=== PATIENT | female | born 1980 ===

== ENCOUNTER 2016-12-20 14:16 | Emergency (ER) | payer OTHER ==
[2016-12-20 14:23] VITALS: BP 113/62; PULSE 89; RESP 18; TEMP 98; O2SAT 99
--- NOTE | 2016-12-20 15:06 | ED PDOC ---
HPI: General Adult Time Seen by Provider: 12/20/16 14:47 Chief Complaint (Nursing): Breast Problem Chief Complaint (Provider): Breast pain History Per: Patient History/Exam Limitations: no limitations Onset/Duration Of Symptoms: Days Current Symptoms Are (Timing): Still Present Additional Complaint(s): Patient is a 36 y/o female with no significant past medical history presenting to the emergency department for occasional breast pain ongoing for two years. Patient states she has felt lumps to her breast and has previoulsy been seen by [facility]. Reports that she had a mammogram and ultrasound done last year. Notes feeling a lump on her left breast several days ago that is painful when palpated. She reports her last normal menstrual period was two weeks ago and pain started few days after. Also notes two normal pregnancies via vaginal delivery. Further, patient reports using an IUD since two years. : 2 Para: 2 PCP: none provided. Past Medical History Reviewed: Historical Data, Nursing Documentation, Vital Signs Vital Signs: Last Vital Signs Temp 98 F 12/20/16 14:20 Pulse 89 12/20/16 14:20 Resp 18 12/20/16 14:20 BP 113/62 12/20/16 14:20 Pulse Ox 99 12/20/16 15:59 - Medical History PMH: No Chronic Diseases - Surgical History Surgical History: No Surg Hx - Family History Family History: States: Unknown Family Hx - Living Arrangements Living Arrangements: With Family - Home Medications Home Medications: Ambulatory Orders Medication Instructions Recorded Naproxen [Naprosyn] 1 tab PO BID PRN #25 tab 12/20/16 - Allergies Allergies/Adverse Reactions: Allergies Allergy/AdvReac Type Severity Reaction Status Date / Time No Known Allergies Allergy Verified 12/20/16 14:20 Review of Systems ROS Statement: Except As Marked, All Systems Reviewed And Found Negative Constitutional: Negative for: Fever Musculoskeletal: Positive for: Other (breast pain with feeling of lump present) Physical Exam - Reviewed Nursing Documentation Reviewed: Yes Vital Signs Reviewed: Yes - Physical Exam Appears: Positive for: Well, Non-toxic, No Acute Distress Head Exam: Positive for: ATRAUMATIC, NORMAL INSPECTION, NORMOCEPHALIC Skin: Positive for: Normal Color, Warm, Dry Eye Exam: Positive for: Normal appearance Neck: Positive for: Normal Cardiovascular/Chest: Positive for: Regular Rate, Rhythm. Negative for: Murmur Respiratory: Positive for: Normal Breath Sounds. Negative for: Accessory Muscle Use, Respiratory Distress Extremity: Positive for: Normal ROM Neurologic/Psych: Positive for: Alert, Oriented (x3) Comments: Breast examination: Breasts are symmetric. No skin changes, dimpling, erythema, or discharge noted. No masses noted on right breast. On left breast, tender mobile 0.5x0.5cm mass at 5 oclock, without tactile warmth. - ECG O2 Sat by Pulse Oximetry: 99 (RA) Pulse Ox Interpretation: Normal Medical Decision Making Medical Decision Making: Impression: Breast pain and mass, likely cyst. h.o cytsts Prior records reviewed: US from 10/31/15 showed left simple breast cysts. BIRADS 2 benign findings. Patient advised to follow up with [facility] outpatient for further evaluation may need US or aspiration of cyst. Recommend ice pack or heat to affected area and to take Naproxen for inflammation and pain. Instruct to return to ER for any worsening symptoms including fever, redness, severe swelling or pain. Disposition - Clinical Impression Clinical Impression: Cyst of breast, Pain of breast Counseled Patient/Family Regarding: Diagnosis, Need For Followup, Rx Given - Disposition [facility] Disposition: Routine/Home Disposition Time: 15:35 Condition: STABLE Additional Instructions: Vaya a spring mdico o la clnica en 2-5 sheehan sin falta, para mas evaluacin. [place] los medicamentos neyda indicado. Volver a la rosanna de emergencia en cualquier momento si los sntomas persisten o empeoran. Prescriptions: Naproxen [Naprosyn] 1 tab PO BID PRN #25 tab PRN Reason: Pain Instructions: Breast Self Exam for Women (ED) Forms: [employer] (Upper Sorbian) Print Language: BELARUSIAN - POA Present On Arrival: None
== END 2016-12-20 16:01 | disposition home or self-care (01) ==
LOC: H.ER 14:16
DX: N64.4 Mastodynia (principal)